=== PATIENT | female | born 1955 | race Caucasian/White ===

== ENCOUNTER 2017-02-01 16:35 | Emergency (ER) | payer OTHER ==
[~2017-02-01] VITALS: Ht 180.3 cm; Wt 69.5 kg
[2017-02-01 16:48] VITALS: BP 131/70; PULSE 99; RESP 18; TEMP 99.2; O2SAT 96
--- NOTE | 2017-02-01 20:02 | PD ---
HPI Chief Complaint: Edema Time Seen by Provider: 20:10 Travel History International Travel<30 days: No Contact w/Intl Traveler<30days: No Traveled to known affect area: No History of Present Illness HPI 61-year-old female presents to the emergency department by private transportation the care of her spouse for complaint of left foot redness swelling and warmth with some tenderness. Patient has noticed progression of the past several days. Patient denies fever chills ascending erythema or left groin lymphadenopathy. Patient is not diabetic. Patient had a similar but more severe episode of symptoms in December and required a 15 day course of Bactrim for resolution of symptoms. Patient is been symptom-free for approximately 3 weeks prior to onset of the symptoms. Patient rates discomfort as mild to moderate. Warmth is mild to moderate. Patient is concerned due to recurrence of symptoms. Patient denies any injury. Patient has noted no ecchymosis. Patient has no ascending redness or swelling and denies any calf pain or swelling. No report of recent long since travel protracted bedrest her surgical procedure. Pain 2/10 in intensity. PFSH Past Medical History Narrative Medical COPD, recent left foot cellulitis, no tobacco use, nursing notes reviewed COPD: Yes (MILD NO MEDS) ?: Not Menopausal: Yes Social History Alcohol Use: No Tobacco Use: No Substance Use: No Allergies-Medications (Allergen,Severity, Reaction): Coded Allergies: Iodinated Contrast- Oral and IV Dye (Verified Allergy, Severe, hives, 02/01) Reported Meds & Prescriptions Reported Meds & Active Scripts Active Keflex (Cephalexin) 500 Mg Capsule 500 Mg PO Q6H 7 Days Bactrim DS (Sulfamethoxazole-Trimethoprim) 800-160 Mg Tab 1 Tab PO BID Review of Systems Except as stated in HPI: all other systems reviewed are Neg General / Constitutional: No: Fever, Chills HENT: No: Congestion Cardiovascular: No: Chest Pain or Discomfort Respiratory: No: Shortness of Breath Gastrointestinal: No: Abdominal Pain Genitourinary: No: Flank Pain Musculoskeletal: Positive: Edema (left foot), Pain (left foot mild), No: Myalgias, Arthralgias Skin: Positive Rash (left foot) Neurologic: No: Weakness Psychiatric: No: Anxiety Hematologic/Lymphatic: No: Lymph Node Enlargement Physical Exam Narrative GENERAL: Well-developed well-nourished female in no acute distress no respiratory distress SKIN: Warm and dry. HEAD: Normocephalic. EYES: No scleral icterus. No injection or drainage. NECK: Supple, trachea midline. No JVD or lymphadenopathy. CARDIOVASCULAR: Regular rate and rhythm without murmurs, gallops, or rubs. RESPIRATORY: Breath sounds equal bilaterally. No accessory muscle use. GASTROINTESTINAL: Abdomen soft, non-tender, nondistended. MUSCULOSKELETAL: No cyanosis, or edema. Attention left lower extremity no calf tenderness no lower leg edema except at the ankle and left foot with mild erythema and increased warmth of the left foot and ankle no petechia no purpura no vesicles no pustules no abrasion no the laceration small areas of skin flakiness around the sole of the foot with dryness. No callus. No ecchymosis. There is a negative Homans sign and no palpable posterior calf cording. DTRs 2+ and equal without clonus; no numbness or pain with ankle flexion. No ascending erythema or left groin without lymphadenopathy or tenderness. Intact range of motion at hips knees and ankle and capillary refill is less than 2 seconds per digit. No palpable point bony tenderness or deformity. BACK: Nontender without obvious deformity. No CVA tenderness. Data Data Last Documented VS Vital Signs Date Time Temp Pulse Resp B/P (MAP) Pulse Ox O2 Delivery O2 Flow Rate FiO2 02/01/17 16:48 99.2 99 18 131/70 (90) 96 Room Air MDM Medical Decision Making Medical Screen Exam Complete: Yes Emergency Medical Condition: Yes Medical Record Reviewed: Yes Differential Diagnosis Cellulitis, vasculitis, sprain, pedal edema; consider occult fracture no evidence for DVT Narrative Course Patient presents with exam and history consistent with cellulitis of the left foot no extension to the ankle: No point bony tenderness or deformity imaging studies not indicated at this time. No findings to support concern for deep vein thrombosis. Patient is stable for outpatient management and will be given prescription for oral antibiotic. Patient also with some dryness and flaking of the plantar surface of the foot and encouraged to use topical over-the- counter antifungal cream. Diagnosis Primary Impression: Cellulitis of left foot Referrals: Primary Care Physician call for appointment Patient Instructions: General Instructions Departure Forms: Tests/Procedures, Work Release Special Instructions: no work x 2 days Additional Instructions: Elevate left lower extremity intermittently for next 12-24 hours Avoid prolonged standing or weightbearing 2 days No work 2 days Take medication as prescribed May use [id number] topical antifungal cream to left foot; per package directions Follow-up with primary care provider call office to schedule follow-up appointment Return to the emergency department for any concerns or change in condition May take acetaminophen/Tylenol as needed for fever 100.4F or greater Med/Other Pt SpecificInfo: Prescription(s) given Scripts Cephalexin (Keflex) 500 Mg Capsule 500 MG PO Q6H for Infection for 7 Days, CAP 0 Refills Prov: Drea Prieto MD 02/01/17 Sulfamethoxazole-Trimethoprim (Bactrim DS) 800-160 Mg Tab 1 TAB PO BID for Infection, #20 TAB 0 Refills Prov: Drea Prieto MD 02/01/17 Disposition: 01 DISCHARGE HOME Condition: Stable Drea Prieto MD Feb 01, 2017 20:02
[2017-02-01] MEDS ORDERED: BACT800T5 PO (20:11)
[2017-02-01] MEDS ORDERED: CEPH-460 PO (20:11)
== END 2017-02-01 20:24 | disposition home or self-care (01) ==
LOC: PHED 16:35 → PHEFT 20:24
DX: L03.116 Cellulitis of left lower limb (principal); J44.9 Chronic obstructive pulmonary disease, unspecified
CPT/HCPCS: 99284